=== PATIENT | male | born 1995 | race Caucasian/White ===

== ENCOUNTER 2017-08-07 19:41 | Emergency (ER) | payer OTHER ==
[~2017-08-07] VITALS: Ht 182.9 cm; Wt 100.0 kg
[~2017-08-07 19:41] MED LIST: CEPH250A PO; CRUTCH2 MISC; HYDR1TAB94 PO; PERM5TC TOP; TRIA80TC TOP
[2017-11-10] MEDS ORDERED: TRIA15CR3 TOP (09:20)
== END 2017-08-07 21:39 | disposition home or self-care (01) ==
LOC: ER 19:41
DX: K30 Functional dyspepsia (principal); F17.200 Nicotine dependence, unspecified, uncomplicated
CPT/HCPCS: 87081; 87430; 99283

== ENCOUNTER 2017-10-01 08:47 | Emergency (ER) | payer OTHER | END 2017-10-01 10:07 | disposition left against medical advice (07) | LOC: ER 08:47 | DX: Z53.21 Procedure and treatment not carried out due to patient leaving prior to being seen by health care provider (principal) ==

== ENCOUNTER 2018-09-24 20:04 | Emergency (ER) | payer OTHER ==
[~2018-09-24] VITALS: Ht 182.9 cm; Wt 90.7 kg
[~2018-09-24 20:04] MED LIST changes: +TRIA15CR3 TOP
== END 2018-09-24 20:25 | disposition home or self-care (01) ==
LOC: ER 20:04
DX: S10.96XA Insect bite of unspecified part of neck, initial encounter (principal); W57.XXXA Bitten or stung by nonvenomous insect and other nonvenomous arthropods, initial encounter; F17.200 Nicotine dependence, unspecified, uncomplicated
CPT/HCPCS: 99282

== ENCOUNTER 2018-10-06 13:58 | Emergency (ER) | payer OTHER ==
[~2018-10-06] VITALS: Ht 180.3 cm; Wt 90.7 kg
[2018-10-06 14:52] LABS: BASOPHILS ABSOLUTE AUTO 0.02 K/mm3 (0.00-0.23); BASOPHILS PERCENT AUTO 0 % (0-2); EOSINOPHILS ABSOLUTE AUTO 0.02 K/mm3 (0.00-0.68); EOSINOPHILS PERCENT AUTO 0 % (0-6); IMMATURE GRAN ABSOLUTE AUTO 0.05 K/mm3 (0.00-0.10); IMMATURE GRAN PERCENT AUTO 0 % (0-1); LYMPHOCYTES ABSOLUTE AUTO 2.36 K/mm3 (0.84-5.20); LYMPHOCYTES PERCENT AUTO 20 % (21-46); MONOCYTES ABSOLUTE AUTO 0.92 K/mm3 (0.16-1.47); MONOCYTES PERCENT AUTO 8 % (4-13); Mean Corpuscular HGB 29.7 pg (26.0-34.0); Mean Corpuscular HGB Conc 33.3 g/dL (31.5-36.5); Mean Corpuscular Volume 89 fL (80-100); Mean Platelet Volume 9.9 fL (9.1-12.4); NEUTROPHILS ABSOLUTE AUTO 8.21 K/mm3 (1.96-9.15); NEUTROPHILS PERCENT AUTO 71 % (41-73); Platelet Count 245 K/mm3 (150-400); RDW Coefficient Variation 13.9 % (11.7-14.2); RDW Standard Deviation 45.5 fL (35.1-46.3); Red Blood Cell Count 4.71 M/mm3 (4.30-5.90); White Blood Cell Count 11.58 K/mm3 (4.00-11.30)
[2018-10-06 14:59] LABS: Anion Gap 6 mmol/L (6-16); Blood Urea Nitrogen 14 mg/dL (8-24); Bun/Creatinine Ratio 18.2 (12.0-20.0); CO2, Blood 27 mmol/L (21-32); Calcium, Blood 9.1 mg/dL (8.5-10.1); Chloride, Blood 110 mmol/L (98-108); Creatinine, Blood 0.77 mg/dL (0.60-1.20); Glomerular Filtration Rate >60 (60-); Glucose, Blood 95 mg/dL (70-99); Potassium, Blood 3.8 mmol/L (3.5-5.5); Sodium, Blood 143 mmol/L (136-145)
[2018-10-06] MEDS ORDERED: Norco 5-325 Ta1 EACH PO (16:12)
== END 2018-10-06 16:30 | disposition home or self-care (01) ==
LOC: ER 13:58
PROVIDERS: Emergency Medicine
DX: S80.811A Abrasion, right lower leg, initial encounter (principal); R10.12 Left upper quadrant pain; V86.56XA Driver of dirt bike or motor/cross bike injured in nontraffic accident, initial encounter
CPT/HCPCS: 70450; 71260; 73590; 74177; 80048; 85025; 96374-59; 96375-59; 96376-59; 99284-25; J1170; J2405; Q9967

== ENCOUNTER 2020-08-15 13:18 | Emergency (ER) | payer SELFPAY ==
[~2020-08-15] VITALS: Ht 182.9 cm; Wt 88.5 kg
[~2020-08-15 13:18] MED LIST changes: +Norco 5-325 Ta1 EACH PO
[2020-08-15] MEDS ORDERED: CYCL10 PO ×2 (13:34→13:54)
[2020-08-15] MEDS ORDERED: LIDO700A20 TOP (13:54)
== END 2020-08-15 14:01 | disposition home or self-care (01) ==
LOC: ER 13:18
DX: S39.012A Strain of muscle, fascia and tendon of lower back, initial encounter (principal); M54.2 Cervicalgia; F17.200 Nicotine dependence, unspecified, uncomplicated; V49.50XA Passenger injured in collision with unspecified motor vehicles in traffic accident, initial encounter; Y92.410 Unspecified street and highway as the place of occurrence of the external cause
CPT/HCPCS: 99283; A9270

== ENCOUNTER 2020-11-21 19:22 | Emergency (ER) | payer OTHER ==
[~2020-11-21] VITALS: Ht 182.9 cm; Wt 88.9 kg
[~2020-11-21 19:22] MED LIST changes: +CYCL10 PO; +LIDO700A20 TOP
== END 2020-11-21 21:00 | disposition left against medical advice (07) ==
LOC: ER 19:22
DX: M79.671 Pain in right foot (principal); Z53.21 Procedure and treatment not carried out due to patient leaving prior to being seen by health care provider
CPT/HCPCS: 73620; 99282-25

== ENCOUNTER 2020-11-21 23:47 | Emergency (ER) | payer OTHER ==
[~2020-11-21] VITALS: Ht 182.9 cm; Wt 88.5 kg
== END 2020-11-22 00:36 | disposition home or self-care (01) ==
LOC: ER 23:47
DX: S61.431A Puncture wound without foreign body of right hand, initial encounter (principal); F17.200 Nicotine dependence, unspecified, uncomplicated; Z23 Encounter for immunization; W45.0XXA Nail entering through skin, initial encounter
CPT/HCPCS: 90471; 90714; 99281

== ENCOUNTER 2020-12-12 22:28 | Emergency (ER) | payer OTHER | END 2020-12-12 23:21 | disposition home or self-care (01) | LOC: ER 22:28 | DX: S01.511A Laceration without foreign body of lip, initial encounter (principal); S00.11XA Contusion of right eyelid and periocular area, initial encounter; F17.200 Nicotine dependence, unspecified, uncomplicated; W51.XXXA Accidental striking against or bumped into by another person, initial encounter | CPT/HCPCS: 99282 ==

== ENCOUNTER 2021-02-11 23:11 | Emergency (ER) | payer OTHER ==
[~2021-02-11] VITALS: Ht 182.9 cm; Wt 84.4 kg
== END 2021-02-12 00:39 | disposition home or self-care (01) ==
LOC: ER 23:11
DX: U07.1 COVID-19 (principal); F17.200 Nicotine dependence, unspecified, uncomplicated
CPT/HCPCS: 99283

== ENCOUNTER → 2021-06-16 | Outpatient (CLI) | payer BC ==
[2021-06-19 23:07] LABS: CHLAMYDIA TRACHOMATIS, NAA Negative (Negative)
== END ==
LOC: LAB SHORT 16:54
PROVIDERS: Physician Assistant
DX: Z11.3 Encounter for screening for infections with a predominantly sexual mode of transmission (principal)
CPT/HCPCS: 87491; 87591

== ENCOUNTER 2021-11-08 17:36 | Emergency (ER) | payer OTHER ==
[~2021-11-08] VITALS: Ht 182.9 cm; Wt 83.9 kg
== END 2021-11-08 19:02 | disposition home or self-care (01) ==
LOC: ER 17:36
DX: S70.12XA Contusion of left thigh, initial encounter (principal); S09.90XA Unspecified injury of head, initial encounter; S09.93XA Unspecified injury of face, initial encounter; W20.8XXA Other cause of strike by thrown, projected or falling object, initial encounter; Y99.0 Civilian activity done for income or pay
CPT/HCPCS: 70450; 72125

== ENCOUNTER 2022-09-08 14:51 | Emergency (ER) | payer OTHER ==
[~2022-09-08] VITALS: Ht 182.9 cm; Wt 79.4 kg
[2022-09-08] MEDS ORDERED: Robaxin750 MG PO (16:20)
[2022-09-08] MEDS ORDERED: HYDR1TAB94 PO (16:20)
== END 2022-09-08 17:19 | disposition home or self-care (01) ==
LOC: ER 14:51
DX: M54.2 Cervicalgia (principal); M25.512 Pain in left shoulder; M54.9 Dorsalgia, unspecified; V89.2XXA Person injured in unspecified motor-vehicle accident, traffic, initial encounter
CPT/HCPCS: 72070; 72100; 72125; A9270

== ENCOUNTER 2023-04-12 11:42 | Emergency (ER) | payer OTHER ==
[~2023-04-12] VITALS: Ht 182.9 cm; Wt 99.8 kg
[~2023-04-12 11:42] MED LIST changes: +Robaxin750 MG PO
[2023-04-12 11:57] VITALS: BP 129/197
[2023-04-12] MEDS ORDERED: Norco 5-325 Ta1 EACH PO (13:01)
== END 2023-04-12 13:09 | disposition home or self-care (01) ==
LOC: ER 11:42
DX: S51.842A Puncture wound with foreign body of left forearm, initial encounter (principal); Z23 Encounter for immunization; W22.8XXA Striking against or struck by other objects, initial encounter; Z79.899 Other long term (current) drug therapy; F17.200 Nicotine dependence, unspecified, uncomplicated
CPT/HCPCS: 73090; 90715; A9270

== ENCOUNTER 2023-04-14 13:03 | Emergency (ER) | payer OTHER ==
[~2023-04-14] VITALS: Ht 182.9 cm; Wt 99.8 kg
[2023-04-14 13:33] VITALS: BP 149/89
[2023-04-14] MEDS ORDERED: AMOCLA875 PO (14:26)
[2023-04-14] MEDS ORDERED: MUPIROCIN1 G1 TOP (14:26)
== END 2023-04-14 14:46 | disposition home or self-care (01) ==
LOC: ER 13:03
DX: S51.812A Laceration without foreign body of left forearm, initial encounter (principal); W26.8XXA Contact with other sharp object(s), not elsewhere classified, initial encounter; F17.200 Nicotine dependence, unspecified, uncomplicated; Z79.899 Other long term (current) drug therapy
CPT/HCPCS: 96365; 96375; 99283-25; J0295; J1885

== ENCOUNTER 2023-04-22 15:19 | Emergency (ER) | payer OTHER ==
[~2023-04-22] VITALS: Ht 182.9 cm; Wt 98.9 kg
[~2023-04-22 15:19] MED LIST changes: +AMOCLA875 PO; +MUPIROCIN1 G1 TOP
[2023-04-22 19:09] VITALS: BP 125/82
== END 2023-04-22 19:09 | disposition home or self-care (01) ==
LOC: ER 15:19
DX: S51.832D Puncture wound without foreign body of left forearm, subsequent encounter (principal); W26.8XXD Contact with other sharp object(s), not elsewhere classified, subsequent encounter; F17.200 Nicotine dependence, unspecified, uncomplicated; Z79.899 Other long term (current) drug therapy
CPT/HCPCS: 73090; 76882; 99284-25